=== PATIENT | male | born 1950 | race Caucasian/White ===

== ENCOUNTER → 2019-05-11 | Outpatient (CLI) | payer OTHER, SELFPAY ==
--- NOTE | 2019-05-13 14:30 | SLEEPCENT ---
DATE OF STUDY: 05/11/2019 ORDERED BY: Dr. Vaz Nocturnal polysomnography was performed for evaluation of sleep physiology in this patient with history of excessive somnolence and nonrestorative sleep. 6 hours and 24 minutes of data were reviewed. There were 156.5 minutes of sleep identified. Sleep latency was mildly prolonged at 22.5 minutes. Rapid eye movement (REM) sleep was not achieved. Sleep architecture showed poor progression and fragmentation. Overall sleep efficiency was 41.4%. The patient's electrocardiogram showed atrial fibrillation with a controlled ventricular response, rate of 60 beats per minute. Rate range was 40-80. Electroencephalogram (EEG) showed reasonably normal waveforms for awake and sleep. There were 198 respiratory events identified of 10 seconds in duration or greater for an apnea-hypopnea index of 75.9. The events were obstructive, not exclusive to sleep stage nor body posture. Arousals from respiratory events occurred 34.1 times per hour and oxygen desaturations were seen into the 80s with some activity in the limb leads. Limb movement arousal index was 5. IMPRESSION: Obstructive sleep apnea syndrome (G47.33). Apnea-hypopnea index 75.9. RECOMMENDATION: The patient should be encouraged to return to the sleep disorder center at this earliest convenience for pressure therapy. In the interim, alcohol and sedative avoidance should be practiced and caution exercised during operation of motor vehicles.
== END ==
LOC: M SLEEP 19:42
PROVIDERS: ATTEND Internal Medicine Pulmonary Disease
DX: G47.33 Obstructive sleep apnea (adult) (pediatric) (principal)

== ENCOUNTER → 2025-04-08 | Outpatient (CLI) | payer MEDICARE | LOC: M PLAIMG 10:31 | PROVIDERS: ATTEND Psychiatry & Neurology Neurology | DX: M54.2 Cervicalgia (principal); R20.2 Paresthesia of skin; M47.812 Spondylosis without myelopathy or radiculopathy, cervical region; M48.02 Spinal stenosis, cervical region ==